=== PATIENT | male | born 1995 ===

== ENCOUNTER 2021-05-23 08:58 | Outpatient (CLI) | payer MEDICAID ==
--- NOTE | 2021-05-23 11:24 | Fluoroscopy Report ---
UPPER GI HISTORY: K21.9 GERDS. Dysphagia. Pain in cervical esophageal region. TECHNIQUE: Single and double contrast barium technique utilized to evaluate the esophagus, stomach, and duodenal C-loop. FINDINGS: To begin the exam, swallowing was evaluated in the lateral position under direct fluorosco py. Swallowing was normal. No mucosal irregularity, mass, mass effect, or critical stenosis. There were no abnormal tertiary c ontractions as seen with dysmotility. No gastroesophageal reflux. IMPRESSION: Unremarkable exam. The patient described difficulty swallowing/pain in the cervical esop hageal region. No abnormality was appreciated in this region under fluoroscopy. Fluoroscopic time: 3.7 minutes Number of fluoroscopic images: 54 Signer Name: Andrew Ulloa Jr, MD Signed: 05/23/2021 11:19 AM Workstation Name: [id number]
== END 2021-05-23 08:59 | disposition home or self-care (01) ==
LOC: FLUORO 08:58
PROVIDERS: ATTEND Internal Medicine
DX: K21.9 Gastro-esophageal reflux disease without esophagitis (principal)
CPT/HCPCS: 74246